=== PATIENT | female | born 1960 | race Caucasian/White ===

== ENCOUNTER → 2023-11-27 06:29 | Outpatient (REF) | payer OTHER, SELFPAY ==
[2023-11-27 07:33] LABS: Urine Albumin 2+ (Neg - Trace); Urine Bilirubin 1+ (Negative); Urine Character Clear (Clear); Urine Color Yellow; Urine Glucose Negative (Negative); Urine Ketone Negative (Negative); Urine Leukocyte Trace (Negative); Urine Nitrite Negative (Negative); Urine Occult Blood Negative (Negative); Urine Specific Gravity 1.015 (<1.030); Urine Urobilinogen 1+ (Neg - 1+)
[2023-11-27 07:34] LABS: % Basophils 0.4 % (0-2); % Eosinophils 3.2 % (0-6); % Immature Granulocytes 0.2 % (0-0.5); % Lymphocytes 21.4 % (20.5-51.1); % Monocytes 7.5 % (1.7-9.3); % Neutrophils 67.3 % (42.2-75.2); Absolute Eosinophils 0.3 10^3/uL (0-0.7); Absolute Lymphocytes 1.9 10^3/uL (1.2-3.4); Absolute Monocytes 0.7 10^3/uL (0.1-0.6); Absolute Neutrophils 6.1 10^3/uL (1.4-6.5); Hematocrit 45.5 % (37.0-47.0); Hemoglobin 15.2 g/dL (12.0-16.0); Mean Corp Hgb Conc. 33.4 g/dL (33.0-37.0); Mean Corpuscular Hgb 31.3 pg (27.0-31.0); Mean Corpuscular Volume 93.6 fL (81.0-99.0); Mean Platelet Volume 10.1 fL (7.4-10.4); Nucleated Red Blood Cells % 0 %; Platelet Count 219 10^3/uL (130-400); Red Blood Cell Count 4.86 10^6/uL (4.20-5.40); Red Cell Dist. Width 12.3 % (11.5-14.5); White Blood Cell Count 9.1 10^3/uL (4.8-10.8)
[2023-11-27 07:56] LABS: ALT (SGPT) 17 U/L (0-35); AST (SGOT) 22 U/L (14-36); Albumin 4.5 g/dl (3.5-5.0); Alkaline Phosphatase 64 U/L (38-126); Blood Urea Nitrogen 17 mg/dl (7-17); Calcium 9.7 mg/dl (8.4-10.2); Carbon Dioxide 28 mmol/L (22-30); Chloride 108 mmol/L (98-107); Glucose 96 mg/dl (70-99); HDL Cholesterol 46 mg/dl; LDL Cholesterol, Calculated 94 mg/dl; Potassium 4.2 mmol/L (3.5-5.1); Sodium 142 mmol/L (135-145); Total Bilirubin 0.5 mg/dl (0.2-1.3); Total Cholesterol 166 mg/dl (50-199); Total Protein 6.7 g/dl (6.3-8.2); Triglyceride 130 mg/dl (10-149); Very Low Density Lipoprotein 26 mg/dl (0-30); eGFR > 60.00
[2023-11-27 08:13] LABS: Vitamin D, 25-OH*** 59.1 ng/mL (30-80)
[2023-11-27 08:24] LABS: Urine Hyaline Cast 0-2 /LPF (0-2); Urine Red Blood Cell 0-2 /HPF (0-2)
[2023-11-27 08:27] LABS: TSH Reflex To Free T4 1.15 uIU/ml (0.47-4.68)
== END ==
LOC: REG 06:29
PROVIDERS: ATTENDING PHYSICIAN Nurse Practitioner Family; FAMILY PHYSICIAN Internal Medicine
DX: Z00.00 Encounter for general adult medical examination without abnormal findings (principal); I10 Essential (primary) hypertension; R05.3 Chronic cough; F17.210 Nicotine dependence, cigarettes, uncomplicated; Z72.0 Tobacco use; G47.9 Sleep disorder, unspecified; R25.2 Cramp and spasm; Z23 Encounter for immunization; E55.9 Vitamin D deficiency, unspecified
CPT/HCPCS: 36415; 80053; 80061; 81003; 81015; 82306; 84443; 85025

== ENCOUNTER → 2023-12-01 07:02 | Outpatient (REF) | payer OTHER, SELFPAY | LOC: RAD 07:02 | PROVIDERS: ATTENDING PHYSICIAN Nurse Practitioner Family | DX: Z87.891 Personal history of nicotine dependence (principal); Z00.00 Encounter for general adult medical examination without abnormal findings; Z72.0 Tobacco use | CPT/HCPCS: 71271 ==

== ENCOUNTER → 2024-05-28 14:30 | Outpatient (REF) | payer OTHER, SELFPAY | LOC: WDC 14:30 | PROVIDERS: ATTENDING PHYSICIAN Obstetrics & Gynecology Gynecology; FAMILY PHYSICIAN Internal Medicine | DX: M81.0 Age-related osteoporosis without current pathological fracture (principal); Z12.31 Encounter for screening mammogram for malignant neoplasm of breast | CPT/HCPCS: 77063; 77067; 77080 ==

== ENCOUNTER → 2024-11-11 06:37 | Outpatient (REF) | payer MEDICARE, OTHER, SELFPAY ==
[2024-11-11 07:16] LABS: Hematocrit 46.2 % (37.0-47.0); Hemoglobin 15.1 g/dL (12.0-16.0); Mean Corp Hgb Conc. 32.7 g/dL (33.0-37.0); Mean Corpuscular Volume 94.5 fL (81.0-99.0); Nucleated Red Blood Cells % 0 %; Platelet Count 222 10^3/uL (130-400); Red Cell Dist. Width 13.0 % (11.5-14.5)
[2024-11-11 07:26] LABS: Urine Character Clear (Clear)
[2024-11-11 07:48] LABS: ALT (SGPT) 18 U/L (0-35); AST (SGOT) 22 U/L (14-36); Albumin 4.7 g/dl (3.5-5.0); Alkaline Phosphatase 46 U/L (38-126); Blood Urea Nitrogen 19 mg/dl (7-17); Calcium 9.7 mg/dl (8.4-10.2); Carbon Dioxide 27 mmol/L (22-30); Chloride 110 mmol/L (98-107); Glucose 97 mg/dl (70-99); HDL Cholesterol 48 mg/dl; LDL Cholesterol, Calculated 86 mg/dl; Potassium 4.3 mmol/L (3.5-5.1); Sodium 142 mmol/L (135-145); Total Protein 7.3 g/dl (6.3-8.2); Very Low Density Lipoprotein 27 mg/dl (0-30); eGFR > 60.00
[2024-11-11 07:51] LABS: Urine Urothelial Cell 0-2 /LPF (FEW)
[2024-11-11 07:52] LABS: Urine Red Blood Cell 0-2 /HPF (0-2)
[2024-11-11 08:03] LABS: Vitamin D, 25-OH*** 70.3 ng/mL (30-80)
[2024-11-11 08:17] LABS: TSH 1.06 uIU/ml (0.47-4.68)
== END ==
LOC: REG 06:37
PROVIDERS: ATTENDING PHYSICIAN Nurse Practitioner Family; FAMILY PHYSICIAN Internal Medicine
DX: I10 Essential (primary) hypertension (principal); E78.2 Mixed hyperlipidemia; E55.9 Vitamin D deficiency, unspecified; Z00.00 Encounter for general adult medical examination without abnormal findings
CPT/HCPCS: 36415; 80053; 80061; 81003; 81015; 82306; 84443; 85025

== ENCOUNTER → 2024-12-08 07:03 | Outpatient (REF) | payer MEDICARE, OTHER, SELFPAY | LOC: RAD 07:03 | PROVIDERS: ATTENDING PHYSICIAN Nurse Practitioner Family | DX: Z00.00 Encounter for general adult medical examination without abnormal findings (principal); I10 Essential (primary) hypertension; R05.3 Chronic cough; F17.210 Nicotine dependence, cigarettes, uncomplicated; Z72.0 Tobacco use; I25.10 Atherosclerotic heart disease of native coronary artery without angina pectoris | CPT/HCPCS: 71271; 93017; 93350 ==

== ENCOUNTER → 2024-12-23 06:47 | Outpatient (REF) | payer MEDICARE, OTHER, SELFPAY | LOC: RSP 06:47 | PROVIDERS: ATTENDING PHYSICIAN Nurse Practitioner Family; FAMILY PHYSICIAN Internal Medicine | DX: Z00.00 Encounter for general adult medical examination without abnormal findings (principal); R05.3 Chronic cough; F17.210 Nicotine dependence, cigarettes, uncomplicated; Z72.0 Tobacco use; R06.03 Acute respiratory distress | CPT/HCPCS: 88738; 94060; 94727; 94729 ==